=== PATIENT | male | born 1985 | race Caucasian/White ===

== ENCOUNTER 2017-05-14 03:23 | Emergency (ER) | payer OTHER ==
[2017-05-14] MEDS ORDERED: NS 2,000 ML IV ONE (03:26)
[2017-05-14] MEDS ORDERED: TDAP ADULT 0.5 ML INJ (BOOSTRIX) IM ONE (03:27)
[2017-05-14] MEDS ORDERED: LORazepam 2 MG/ML INJ IVP ONE (03:28)
[2017-05-14] MEDS ORDERED: OLANZapine 10 MG/2 ML VIAL IM ONE (03:32)
--- NOTE | 2017-05-14 03:32 | EDPHY ---
H & P Time Seen by Provider: 05/14/17 03:24 HPI/ROS: HPI CHIEF COMPLAINT: Ecstasy intoxication, agitated behavior, tazed HISTORY OF PRESENT ILLNESS: this patient 31-year-old male, unknown medical history, unknown surgical history, presents emergency room after he did ecstasy this evening and police were called as he was throwing a exact house, 1 please make contact with him the patient ran directly after the police and got agitated and aggressive with them requiring them to take him multiple times. Did have head strike against the ground with a positive LOC. Upon arrival here in emergency room he is agitated he is in handcuffs he is tachycardic has an abrasion left forehead with underlying hematoma, he has abrasion left anterior shoulder, and multiple Taser oconnor sites 1 in his right chest 1 on his left abdomen and 3 on his back. There are no Taser probes left. Here in the emergency room he is alert and oriented however agitated and tachycardic. Past Medical History: Unknown medical history Past Surgical History: unknown surgical history Social History: ecstasy this evening, unknown other drugs or alcohol Family History: unknown ROS REVIEW OF SYSTEMS: review of systems is limited due the patient's clinical intoxication. Exam Constitutional Agitated, triage nursing summary reviewed, vital signs reviewed, awake/alert. Eyes normal conjunctivae and sclera, EOMI, PERRLA. HENT normal inspection, atraumatic, moist mucus membranes, no epistaxis, neck supple/ no meningismus, no raccoon eyes. Respiratory clear to auscultation bilaterally, normal breath sounds, no respiratory distress, no wheezing. Cardiovascular tachycardic, regular rhythm, no murmur, no edema, distal pulses normal. Gastrointestinal soft, non-tender, no rebound, no guarding, normal bowel sounds, no distension, no pulsatile mass. Genitourinary no CVA tenderness. Musculoskeletal no midline vertebral tenderness, full range of motion, no calf swelling, no tenderness of extremities, no meningismus, good pulses, neurovascularly intact. Skin pink, warm, & dry, no rash, skin atraumatic. Neurologic awake, alert and oriented x 3, AAOx3, moves all 4 extremities equally, motor intact, sensory intact, CN II-XII intact, normal cerebellar, normal vision, normal speech. Psychiatric normal mood/affect. Heme/Lymph/Immune no lymphadenopathy. Differential Diagnosis: includes but is not limited to in a particular order acute drug intoxication, ecstasy intoxication, acute agitation from drug intoxication, injury from being taste, closed head injury, intracranial bleed, soft tissue injury aggressive behavior from drugs, rhabdomyolysis Medical Decision Making: plan for this patient rn cardiac rehab, EKG due to tachycardia, IV establishment, IV Ativan, IM Zyprexa, IV fluid bolus, check CK , check electrolytes. Re-evaluation: CT scan of the Head without IV contrast for trauma after being Tazed The results of the study are negative for acute abnormality The study was read by Dr. Suárez I viewed the images myself on the PACS system. EKG interpretation by me on record in [employer] system. Impression Reason for EKG tachycardia after being taste, this EKG time 3:35 a.m. sinus tachycardia rate of 100, otherwise unremarkable EKG no acute ischemia. 0452AM: This time patient is resting comfortably. Sleeping. Heart rate is currently 86. Blood pressure 116/75. Sleeping. 0505AM: Patient's her a much improved. Re-evaluate him at this time and he still seems to be intoxicated ecstasy. 0541AM: Re-examination at this time this patient tells me still fighting dark forces. Heart rate was resting comfortably at 90. Now up to 118. Received 3rd L of fluid. Will reassess shortly. 0556AM: Re-examination at this time patient still acting appropriately. Will allow him to be discharged from the ER to retirement. Source: Patient, Police, EMS Constitutional: Initial Vital Signs Temperature (C) 37 C 05/14/17 03:46 Heart Rate 120 H 05/14/17 03:46 Respiratory Rate 18 05/14/17 03:46 Blood Pressure 140/101 H 05/14/17 03:46 O2 Sat (%) 96 05/14/17 03:46 O2 Delivery Mode Room Air Allergies/Adverse Reactions: No Known Allergies Allergy (Unverified 05/14/17 03:45) Home Medications: Medication Instructions Recorded NK [No Known Home Meds] 05/14/17 Medical Decision Making - Data Points Laboratory Results: Laboratory Results 05/14/17 03:30 05/14/17 03:30 05/14/17 05/14/17 03:30 03:30 WBC 8.69 10^3/uL 10^3/uL (3.80-9.50) RBC 5.22 10^6/uL 10^6/uL (4.40-6.38) Hgb 16.2 g/dL g/dL (13.7-17.5) Hct 45.0 % % (40.0-51.0) MCV 86.2 fL fL (81.5-99.8) MCH 31.0 pg pg (27.9-34.1) MCHC 36.0 g/dL g/dL (32.4-36.7) RDW 12.0 % % (11.5-15.2) Plt Count 215 10^3/uL 10^3/uL (150-400) MPV 9.7 fL fL (8.7-11.7) Neut % (Auto) 75.6 % H % (39.3-74.2) Lymph % (Auto) 14.6 % L % (15.0-45.0) Hand % (Auto) 7.4 % % (4.5-13.0) Eos % (Auto) 1.3 % % (0.6-7.6) Baso % (Auto) 0.6 % % (0.3-1.7) Nucleat RBC Rel Count 0.0 % % (0.0-0.2) Absolute Neuts (auto) 6.58 10^3/uL H 10^3/uL (1.70-6.50) Absolute Lymphs (auto) 1.27 10^3/uL 10^3/uL (1.00-3.00) Absolute Monos (auto) 0.64 10^3/uL 10^3/uL (0.30-0.80) Absolute Eos (auto) 0.11 10^3/uL 10^3/uL (0.03-0.40) Absolute Basos (auto) 0.05 10^3/uL 10^3/uL (0.02-0.10) Absolute Nucleated RBC 0.00 10^3/uL 10^3/uL (0-0.01) Immature Gran % 0.5 % % (0.0-1.1) Immature Gran # 0.04 10^3/uL 10^3/uL (0.00-0.10) Sodium 143 mEq/L mEq/L (134-144) Potassium 3.9 mEq/L mEq/L (3.5-5.2) Chloride 109 mEq/L mEq/L (97-110) Carbon Dioxide 15 mEq/l L mEq/l (22-31) Anion Gap 19 mEq/L H mEq/L (8-16) BUN 14 mg/dL mg/dL (7-23) Creatinine 1.1 mg/dL mg/dL (0.7-1.3) Estimated GFR > 60 Glucose 168 mg/dL H mg/dL (70-100) Calcium 9.9 mg/dL mg/dL (8.5-10.4) Creatine Kinase 336 IU/L H IU/L (0-224) CK-MB (CK-2) Fraction 2.39 ng/mL ng/mL (0-3.19) CK-MB (CK-2) % 0.7 % % (0.0-4.0) Creatine Kinase Interp NEGATIVE (NEGATIVE) Ethyl Alcohol < 10 mg/dL mg/dL (0-10) Medications Given: Discontinued Medications Diphtheria/Tetanus/Acell Pertussis (Boostrix) 0.5 ml IM .ONCE ONE Stop: 05/14/17 03:28 Last Admin: 05/14/17 03:37 Dose: 0.5 ml Sodium Chloride (Ns) 2,000 mls @ 0 mls/hr IV EDNOW ONE; Wide Open PRN Reason: Protocol Stop: 05/14/17 03:27 Last Admin: 05/14/17 03:59 Dose: 2,000 mls Olanzapine (Zyprexa Im Injection) 5 mg IM EDNOW ONE Stop: 05/14/17 03:33 Last Admin: 05/14/17 03:36 Dose: 5 mg Departure - Departure Disposition: Home, Routine, Self-Care Clinical Impression: Ecstasy abuse Condition: Good Instructions: Polysubstance Abuse (ED) Additional Instructions: 1. Medically cleared for retirement. Referrals: Patient,NotPresent [Unknown] - As per Instructions
[2017-05-14 03:42] LABS: % IMMATURE GRANULYOCYTES 0.5 % (0.0-1.1); ABSOLUTE IMMATURE GRANULOCYTES 0.04 10^3/uL (0.00-0.10); ADD DIFF? NO; ADD MORPH? NO; ADD SCAN? NO; ATYPICAL LYMPHOCYTE FLAG 0 (0-99); FRAGMENT RBC FLAG 0 (0-99); HEMOGLOBIN 16.2 g/dL (13.7-17.5); LEFT SHIFT FLG 0 (0-99); LIPEMIA HEMOLYSIS FLAG 90 (0-99); MEAN CELL VOLUME 86.2 fL (81.5-99.8); MEAN PLATELET VOLUME 9.7 fL (8.7-11.7); PLATELET CLUMPS FLAG 0 (0-99); PLATELET COUNT 215 10^3/uL (150-400); RED BLOOD CELL COUNT 5.22 10^6/uL (4.40-6.38)
[2017-05-14 03:48] VITALS: RESP 18
--- NOTE | 2017-05-14 03:57 | CPEKG ---
Heart Rate: 100 RR Interval: 600 P-R Interval: 144 QRSD Interval: 82 QT Interval: 328 QTC Interval: 423 P Montgomery: 57 QRS Montgomery: 9 T Wave Montgomery: 63 EKG Severity - BORDERLINE ECG - EKG Impression: SINUS TACHYCARDIA EKG Impression: BORDERLINE T WAVE ABNORMALITIES Electronically Signed By: Stephan Bridges 16-May-2017 17:38:47
[2017-05-14 04:07] LABS: ANION GAP 19 mEq/L (8-16); CALCIUM 9.9 mg/dL (8.5-10.4); CARBON DIOXIDE 15 mEq/l (22-31); CHLORIDE 109 mEq/L (97-110); CREATININE 1.1 mg/dL (0.7-1.3); ETHANOL SERUM < 10 mg/dL (0-10); GLOMERULAR FILTRATION RATE > 60; GLUCOSE 168 mg/dL (70-100); POTASSIUM 3.9 mEq/L (3.5-5.2); SODIUM 143 mEq/L (134-144)
[2017-05-14 04:24] LABS: CK-MB INTERPRETATION NEGATIVE (NEGATIVE); CREATINE KINASE-MB FRACTION 2.39 ng/mL (0-3.19)
[2017-05-14 06:10] VITALS: BP 146/88; PULSE 93; TEMP 97.7; O2SAT 100
== END 2017-05-14 06:11 | disposition home or self-care (01) ==
LOC: EDUNIT#
DX: F16.10 Hallucinogen abuse, uncomplicated (principal); E86.9 Volume depletion, unspecified; Z23 Encounter for immunization
CPT/HCPCS: G0480